=== PATIENT | male | born 1960 | race Caucasian/White ===

== ENCOUNTER → 2020-04-12 | Outpatient (CLI) | payer BC ==
[~2020-04-12] MED LIST: PRILOSEC20 MG PO
== END | disposition home or self-care (01) ==
LOC: ORTHO 13:51
PROVIDERS: ATTEND Orthopaedic Surgery
DX: M25.561 Pain in right knee (principal)

== ENCOUNTER 2021-12-21 20:39 | Emergency (ER) | payer BC ==
[~2021-12-21] VITALS: Ht 170.1 cm; Wt 89.8 kg
[2021-12-21 20:51] VITALS: BP 150/116
[2021-12-21] MEDS ORDERED: VITAMIN D3100 GM MC (20:53)
[2021-12-21] MEDS ORDERED: LOPRESSOR50 M1 PO (20:54)
[2021-12-21] MEDS ORDERED: ASPIRIN81 M1 PO (20:54)
[2021-12-21] MEDS ORDERED: NORVASC5 MG PO (20:54)
[2021-12-21] MEDS ORDERED: PROTONIX TR40 M1 PO (20:55)
== END 2021-12-21 22:27 | disposition home or self-care (01) ==
LOC: ED 20:39
DX: U07.1 COVID-19 (principal); Z88.2 Allergy status to sulfonamides; Z79.899 Other long term (current) drug therapy; Z79.82 Long term (current) use of aspirin